=== PATIENT | male | born 1960 | race Caucasian/White ===

== ENCOUNTER → 2016-12-08 | Outpatient (CLI) | payer OTHER ==
[~2016-12-08] MED LIST: ASPIRIN CHEWABL81 MG PO; CATAPRES 0.1MG0.1 MG PO; CHLORTHALIDONE25 MG PO; FLEXERIL 10 MG10 MG PO; LABETALOL HCL200 MG PO; LIPITOR TAB 2020 MG PO; LORCET PLUS 7.1 EACH PO; NITROSTAT 0.40.4 MG SL
== END ==
LOC: SLEEP 21:30
DX: G47.33 Obstructive sleep apnea (adult) (pediatric) (principal)
CPT/HCPCS: 95810

== ENCOUNTER → 2017-01-05 | Outpatient (CLI) | payer OTHER ==
[2017-01-05 08:29] LABS: BUN/CREATININE RATIO 22 (0-10)
== END ==
LOC: LAB 07:23
PROVIDERS: Internal Medicine Nephrology
DX: I10 Essential (primary) hypertension (principal)
CPT/HCPCS: 36415; 80048; 81001; 82043; 82088; 82570; 83835; 84244; 84443

== ENCOUNTER → 2020-12-05 | Outpatient (CLI) | payer OTHER ==
[~2020-12-05] MED LIST changes: +ASPIRIN EC81 MG PO; +BUDESONIDE0.25 MG/2 INH; +CARVEDILOL25 MG PO; -CATAPRES 0.1MG0.1 MG PO; +CLONIDINE1 EAC2 TD; +COLACE 100MG C100 MG PO; +COZAAR 50MG TAB50 MG PO; +CYCLOBENZAPRINE10 MG PO; +ENTRESTO 24 MG1 EACH PO; -FLEXERIL 10 MG10 MG PO; +FLOMAX0.4 MG PO; +FUROSEMIDE40 MG PO; +GLUCOPHAGE500 MG PO; +HYDRALAZINE HCL50 MG PO; +HYDROCODON-ACE1 EAC6 PO; +IPRAT-ALBUT 0.5-3 ML NEB; +LOPRESSOR100 MG PO; +MONTELUKAST SOD10 MG PO; +NIFEDIPINE ER30 M1 PO; +OMNICEF 300 MG300 MG PO; +PREDNISONE 50 M50 MG PO; +PROTONIX 40 MG40 M1 PO; +SKIN TREATMENT400 GM TOP; +SPIRIVA RESPIMAT4 GM INH; +SYMBICORT 160-1 INHA INH; +TIZANIDINE HCL4 MG PO; +ZESTRIL40 MG PO; +ZITHROMAX500 MG PO
== END ==
LOC: KOH-I 11-26 09:00
DX: M54.16 Radiculopathy, lumbar region (principal); M51.36 Other intervertebral disc degeneration, lumbar region; M48.061 Spinal stenosis, lumbar region without neurogenic claudication
CPT/HCPCS: 72131

== ENCOUNTER 2021-01-04 17:16 | Inpatient (IN) | payer OTHER ==
[~2021-01-04] VITALS: Ht 175.3 cm; Wt 107.6 kg
[~2021-01-04 17:16] MED LIST changes: -ASPIRIN EC81 MG PO; -BUDESONIDE0.25 MG/2 INH; -CARVEDILOL25 MG PO; -CLONIDINE1 EAC2 TD; -COZAAR 50MG TAB50 MG PO; -CYCLOBENZAPRINE10 MG PO; -ENTRESTO 24 MG1 EACH PO; -FLOMAX0.4 MG PO; -FUROSEMIDE40 MG PO; -GLUCOPHAGE500 MG PO; -HYDRALAZINE HCL50 MG PO; -HYDROCODON-ACE1 EAC6 PO; -IPRAT-ALBUT 0.5-3 ML NEB; -LOPRESSOR100 MG PO; -MONTELUKAST SOD10 MG PO; -NIFEDIPINE ER30 M1 PO; -NITROSTAT 0.40.4 MG SL; -PROTONIX 40 MG40 M1 PO; -SKIN TREATMENT400 GM TOP; -SPIRIVA RESPIMAT4 GM INH; -TIZANIDINE HCL4 MG PO
[2021-01-04 19:54] LABS: HEMOGLOBIN 18.6 gm/dl (14.0-17.5); RED BLOOD COUNT 5.99 M/UL (4.20-5.50); WHITE BLOOD COUNT 6.7 K/UL (4.5-11.0)
[2021-01-04 20:31] LABS: BUN/CREATININE RATIO 16 (0-10)
[2021-01-05] MEDS ORDERED: HYDROCODON-ACE1 EAC6 PO (03:27)
[2021-01-05] MEDS ORDERED: LOPRESSOR100 MG PO (03:28)
[2021-01-05] MEDS ORDERED: CYCLOBENZAPRINE10 MG PO (03:37)
[2021-01-05 04:42] LABS: BUN/CREATININE RATIO 24 (0-10)
[2021-01-05] MEDS ORDERED: SPIRIVA RESPIMAT4 GM INH (13:20)
[2021-01-05] MEDS ORDERED: CHLORTHALIDONE25 MG PO (13:21)
[2021-01-05] MEDS ORDERED: FLOMAX0.4 MG PO (13:22)
[2021-01-05] MEDS ORDERED: MONTELUKAST SOD10 MG PO (13:22)
[2021-01-05] MEDS ORDERED: SKIN TREATMENT400 GM TOP (13:23)
[2021-01-05] MEDS ORDERED: GLUCOPHAGE500 MG PO (17:54)
--- NOTE | 2021-01-05 20:05 | NUR ---
PT REFUSED TO TAKE HYDRALAZINE AND REFUSED TO ALLOW LAB TO PERFORM BLOOD DRAW. NOTIFIED DR SAMAYOA. RECIEVED NO NEW ORDERS. WILL CONTINUE TO MONITOR.
[2021-01-06 08:15] LABS: RED BLOOD COUNT 5.15 M/UL (4.20-5.50); WHITE BLOOD COUNT 8.9 K/UL (4.5-11.0)
[2021-01-06 08:35] LABS: BUN/CREATININE RATIO 27 (0-10)
[2021-01-07 06:57] LABS: HEMOGLOBIN 14.6 gm/dl (14.0-17.5); RED BLOOD COUNT 4.81 M/UL (4.20-5.50); WHITE BLOOD COUNT 7.3 K/UL (4.5-11.0)
[2021-01-07 07:12] LABS: BUN/CREATININE RATIO 25 (0-10)
--- NOTE | 2021-01-07 14:59 | NUR ---
patient off telemetry for shower. aware.
--- NOTE | 2021-01-07 18:14 | NUR ---
DR. GOLDEN INSTRUCTED RN TO ADMINISTER AMIODARONE NOW THEN PASS ON THAT PATIENT CAN TAKE A DOSE AT 9 PM TONIGHT THEN 6 AM TOMORROW MORNING THEN GO HOME IN SHIFT REPORT.
[2021-01-08] MEDS ORDERED: CLONIDINE1 EAC2 TD (03:37)
[2021-01-08 06:05] LABS: HEMOGLOBIN 14.4 gm/dl (14.0-17.5); RED BLOOD COUNT 4.72 M/UL (4.20-5.50); WHITE BLOOD COUNT 5.6 K/UL (4.5-11.0)
[2021-01-08 06:32] LABS: BUN/CREATININE RATIO 25 (0-10)
[2021-01-08] MEDS ORDERED: IPRAT-ALBUT 0.5-3 ML NEB (10:48)
[2021-01-08] MEDS ORDERED: COZAAR 50MG TAB50 MG PO (10:49)
[2021-01-08] MEDS ORDERED: PROTONIX 40 MG40 M1 PO (10:49)
[2021-01-08] MEDS ORDERED: FUROSEMIDE40 MG PO (10:49)
[2021-01-08] MEDS ORDERED: HYDRALAZINE HCL50 MG PO (10:49)
--- NOTE | 2021-01-08 11:14 | NUR ---
UPON ENTERING PATIENTS ROOM FOR VITAL SIGN CHECK, PATIENT STATES THAT HE WASHAVING DIZZINESS AND FELT SHORT OF BREATH. PATIENT IS NOT IN DISTRESS AT THIS TIME. PATIENT IS SITTING UP ON THE SIDE OF THE BED. PATIENT STATES HE FEELS LIKE HE CANT TAKE A DEEP BREATH. PATIENT VITALS STABLE AT THIS TIME. O2 SATURATION 100%, HR 64, RR 18. PROVIDER MADE AWARE AND CALLED TO BEDSIDE TO ASSESS CHANGE IN PATIENT CONDITION. PROVIDER STATES TO GIVE PATIENT A NEBULIZER TREATMENT AND HOLD PATIENT FOR A FFEW HOURS TO MAKE SURE THAT PATIENT DOES NOT HAVE ANOTHER EPISODE OF DIZZINESS.
[2021-01-08] MEDS ORDERED: BUDESONIDE0.25 MG/2 INH (11:27)
[2021-01-09] MEDS ORDERED: NITROSTAT 0.40.4 MG SL (16:12)
[2021-01-09] MEDS ORDERED: TIZANIDINE HCL4 MG PO (16:59)
== END 2021-01-08 13:51 | disposition home or self-care (01) | DRG 291 ==
LOC: ER1 17:16 → CDU 23:30 → MED SURG 4 23:30
PROVIDERS: Internal Medicine; Student in an Organized Health Care Education/Training Program; ADMIT Internal Medicine
PROC: B24BZZ4 Ultrasonography of Heart with Aorta, Transesophageal (ICD-10-PCS; principal; 2021-01-05)
DX: I11.0 Hypertensive heart disease with heart failure (principal); J96.01 Acute respiratory failure with hypoxia; E87.2 Acidosis; I25.10 Atherosclerotic heart disease of native coronary artery without angina pectoris; G47.33 Obstructive sleep apnea (adult) (pediatric); Z20.822 Contact with and (suspected) exposure to COVID-19; I16.0 Hypertensive urgency; I25.5 Ischemic cardiomyopathy; E66.01 Morbid (severe) obesity due to excess calories; J45.909 Unspecified asthma, uncomplicated; I50.43 Acute on chronic combined systolic (congestive) and diastolic (congestive) heart failure; E11.9 Type 2 diabetes mellitus without complications; E78.5 Hyperlipidemia, unspecified; I49.5 Sick sinus syndrome; Z95.0 Presence of cardiac pacemaker; Z95.5 Presence of coronary angioplasty implant and graft; Z86.74 Personal history of sudden cardiac arrest; Z82.49 Family history of ischemic heart disease and other diseases of the circulatory system; Z83.3 Family history of diabetes mellitus; Z90.49 Acquired absence of other specified parts of digestive tract; Z90.79 Acquired absence of other genital organ(s); Z88.2 Allergy status to sulfonamides; Z88.0 Allergy status to penicillin; Z87.891 Personal history of nicotine dependence
CPT/HCPCS: ECHO; 0240U; 36415; 71045; 71046; 80048; 80053; 80061; 82550; 82553; 82962; 83036; 83605; 83690; 83735; 83874; 83880; 84100; 84439; 84443; 84484; 84550; 85025; 85027; 85379; 86140; 86738; 87040; 93005; 93306; 94640; 94664; 94760; 96374; 99285; J1650; J1940; J1956; J3475; Q9967

== ENCOUNTER 2021-01-09 09:11 | Inpatient (IN) | payer OTHER ==
[~2021-01-09] VITALS: Ht 175.3 cm; Wt 154.3 kg
[~2021-01-09 09:11] MED LIST changes: +BUDESONIDE0.25 MG/2 INH; +CLONIDINE1 EAC2 TD; +COZAAR 50MG TAB50 MG PO; +CYCLOBENZAPRINE10 MG PO; +FLOMAX0.4 MG PO; +FUROSEMIDE40 MG PO; +GLUCOPHAGE500 MG PO; +HYDRALAZINE HCL50 MG PO; +HYDROCODON-ACE1 EAC6 PO; +IPRAT-ALBUT 0.5-3 ML NEB; +LOPRESSOR100 MG PO; +MONTELUKAST SOD10 MG PO; +PROTONIX 40 MG40 M1 PO; +SKIN TREATMENT400 GM TOP; +SPIRIVA RESPIMAT4 GM INH
[2021-01-09 10:38] LABS: HEMOGLOBIN 17.8 gm/dl (14.0-17.5); RED BLOOD COUNT 5.66 M/UL (4.20-5.50); WHITE BLOOD COUNT 10.3 K/UL (4.5-11.0)
[2021-01-09 10:48] LABS: BUN/CREATININE RATIO 25 (0-10)
[2021-01-09] MEDS ORDERED: NITROSTAT 0.40.4 MG SL (16:12)
[2021-01-09] MEDS ORDERED: TIZANIDINE HCL4 MG PO (16:59)
[2021-01-10 02:24] LABS: RED BLOOD COUNT 5.2 M/UL (4.20-5.50); WHITE BLOOD COUNT 8.4 K/UL (4.5-11.0)
[2021-01-10 02:47] LABS: BUN/CREATININE RATIO 24 (0-10)
--- NOTE | 2021-01-10 11:00 | NUR ---
NO CHANGES FROM PREVIOUS ASSESSMENT
--- NOTE | 2021-01-10 15:54 | NUR ---
NO CHANGE FROM PREVIOUS ASSESSMENT
[2021-01-11 03:54] LABS: BUN/CREATININE RATIO 20 (0-10)
--- NOTE | 2021-01-11 11:00 | NUR ---
NO CHANGES FROM PREVIOUS ASSESSMENT
[2021-01-12] MEDS ORDERED: ASPIRIN EC81 MG PO (11:11)
[2021-01-12] MEDS ORDERED: ENTRESTO 24 MG1 EACH PO (11:11)
[2021-01-12] MEDS ORDERED: NIFEDIPINE ER30 M1 PO (11:11)
[2021-01-12] MEDS ORDERED: CARVEDILOL25 MG PO (11:11)
== END 2021-01-12 13:25 | disposition home or self-care (01) | DRG 305 ==
LOC: ER1 09:11 → PROG CARE 12:56 → CDU 12:56 → PROG CARE 12:56 → CDU 14:57 → PROG CARE 15:53
PROVIDERS: Physician Assistant Medical; ADMIT Internal Medicine
DX: I16.0 Hypertensive urgency (principal); I50.32 Chronic diastolic (congestive) heart failure; E66.2 Morbid (severe) obesity with alveolar hypoventilation; Z68.43 Body mass index [BMI] 50.0-59.9, adult; I11.0 Hypertensive heart disease with heart failure; K76.0 Fatty (change of) liver, not elsewhere classified; D75.1 Secondary polycythemia; E11.9 Type 2 diabetes mellitus without complications; I25.10 Atherosclerotic heart disease of native coronary artery without angina pectoris; I49.5 Sick sinus syndrome; I25.5 Ischemic cardiomyopathy; R07.89 Other chest pain; E78.5 Hyperlipidemia, unspecified; N40.0 Benign prostatic hyperplasia without lower urinary tract symptoms; K59.00 Constipation, unspecified; J45.909 Unspecified asthma, uncomplicated; M54.5 Low back pain; G89.29 Other chronic pain; K21.9 Gastro-esophageal reflux disease without esophagitis; Z88.6 Allergy status to analgesic agent; Z88.0 Allergy status to penicillin; Z88.2 Allergy status to sulfonamides; Z90.49 Acquired absence of other specified parts of digestive tract; Z95.0 Presence of cardiac pacemaker; Z82.49 Family history of ischemic heart disease and other diseases of the circulatory system
CPT/HCPCS: 36415; 71045; 80048; 80053; 82550; 82553; 82962; 83735; 83874; 83880; 84484; 85025; 85027; 85610; 93005; 94640; 94664; 94760; 96374; 96375; 99285; G0378; J2270; J2405; U0002

== ENCOUNTER → 2021-01-23 | Outpatient (CLI) | payer OTHER ==
[~2021-01-23] MED LIST changes: +ASPIRIN EC81 MG PO; +CARVEDILOL25 MG PO; +ENTRESTO 24 MG1 EACH PO; +NIFEDIPINE ER30 M1 PO; +NITROSTAT 0.40.4 MG SL; +TIZANIDINE HCL4 MG PO
== END ==
LOC: SLEEP 14:42
DX: G47.33 Obstructive sleep apnea (adult) (pediatric) (principal); I11.0 Hypertensive heart disease with heart failure; I50.20 Unspecified systolic (congestive) heart failure; E11.9 Type 2 diabetes mellitus without complications; I25.10 Atherosclerotic heart disease of native coronary artery without angina pectoris; J45.20 Mild intermittent asthma, uncomplicated; E78.5 Hyperlipidemia, unspecified; I49.5 Sick sinus syndrome; E66.01 Morbid (severe) obesity due to excess calories; Z86.74 Personal history of sudden cardiac arrest; Z95.0 Presence of cardiac pacemaker
CPT/HCPCS: 95811

== ENCOUNTER → 2021-02-05 | Outpatient (CLI) | payer OTHER | LOC: HEART 5 13:28 | DX: R06.02 Shortness of breath (principal); R91.1 Solitary pulmonary nodule | CPT/HCPCS: 71046; 94060; 94729 ==